=== PATIENT | female | born 1995 | race Caucasian/White ===

== ENCOUNTER 2024-01-18 03:48 | Inpatient (IN) | payer OTHER ==
[2024-01-18] VITALS (16 sets, daily range): BP systolic 111–157; BP diastolic 46–84
[~2024-01-18] VITALS: Ht 175.3 cm; Wt 133.2 kg
[2024-01-18] MEDS ORDERED: PRENATAL TABLE1 EAC2 PO (03:56)
[2024-01-18] MEDS ORDERED: OXYTOCIN IV ONE (04:20)
[2024-01-18] MEDS ORDERED: RINGER S LACTATE IV ONE (04:20)
[2024-01-18] MEDS ORDERED: Misoprostol 200 MCG Tab PR PRN ×2 (04:40→05:40)
[2024-01-18] MEDS ORDERED: Tranexamic Acid 100 ML IV SCH (04:40)
[2024-01-18] MEDS ORDERED: Misoprostol 200 MCG Tab BC PRN (04:40)
[2024-01-18] MEDS ORDERED: Acetaminophen 500 MG Tab PO PRN (04:40)
[2024-01-18] MEDS ORDERED: Calcium Carbonate 500 MG Tab Chew PO PRN (04:40)
[2024-01-18] MEDS ORDERED: OXYTOCIN/RINGER'S LACTATE 500 ML IV PRN (04:40)
[2024-01-18] MEDS ORDERED: Carboprost Tromethamine 250 MCG/ML 1ML Amp IM PRN (04:40)
[2024-01-18] MEDS ORDERED: Methylergonovine Maleate 0.2MG / ML 1ML Amp IM PRN ×2 (04:40→05:40)
[2024-01-18] MEDS ORDERED: Ondansetron HCl 2 MG / ML 2ML Vial IV PRN ×2 (04:40→05:35)
[2024-01-18] MEDS ORDERED: Oxytocin 10 Unit / ML Vial IM PRN (04:40)
[2024-01-18 05:04] LABS: BASOPHILS ABSOLUTE AUTO 0.06 K/mm3 (0.00-0.23); BASOPHILS PERCENT AUTO 0 % (0-2); EOSINOPHILS ABSOLUTE AUTO 0.03 K/mm3 (0.00-0.68); EOSINOPHILS PERCENT AUTO 0 % (0-6); Hematocrit 35.4 % (33.0-51.0); Hemoglobin 12.1 g/dL (11.5-16.0); IMMATURE GRAN ABSOLUTE AUTO 0.16 K/mm3 (0.00-0.10); IMMATURE GRAN PERCENT AUTO 1 % (0-1); LYMPHOCYTES ABSOLUTE AUTO 1.51 K/mm3 (0.84-5.20); LYMPHOCYTES PERCENT AUTO 6 % (21-46); MONOCYTES ABSOLUTE AUTO 0.77 K/mm3 (0.16-1.47); MONOCYTES PERCENT AUTO 3 % (4-13); Mean Corpuscular HGB 30.4 pg (26.0-34.0); Mean Corpuscular HGB Conc 34.2 g/dL (31.5-36.5); Mean Corpuscular Volume 89 fL (80-100); Mean Platelet Volume 9.3 fL (9.1-12.4); NEUTROPHILS ABSOLUTE AUTO 20.93 K/mm3 (1.96-9.15); NEUTROPHILS PERCENT AUTO 89 % (41-73); Platelet Count 343 K/mm3 (150-400); RDW Coefficient Variation 14.6 % (11.7-14.2); RDW Standard Deviation 46.5 fL (35.1-46.3); Red Blood Cell Count 3.98 M/mm3 (3.80-5.20); White Blood Cell Count 23.46 K/mm3 (4.00-11.30)
[2024-01-18] MEDS ORDERED: OxyCODONE 5 mg/Acetamin 325 mg TABLET PO PRN (05:35)
[2024-01-18] MEDS ORDERED: OXYTOCIN/RINGER'S LACTATE 500 ML IV SCH (05:35)
[2024-01-18] MEDS ORDERED: Lanolin Cream TOP PRN (05:35)
[2024-01-18] MEDS ORDERED: Rho(D) Immune Globulin 300 MCG / SYR IM ONE (05:40)
[2024-01-18] MEDS ORDERED: Witch Hazel/Glycerin PADS TOP PRN (05:40)
[2024-01-18] MEDS ORDERED: Ketorolac Tromethamine 30mg Vial IV PRN (05:40)
[2024-01-18] MEDS ORDERED: FLU VACC TS2024-25(6MOS UP)/PF 45 MCG/0.5 ML SYRINGE IM ONE (05:40)
[2024-01-18] MEDS ORDERED: Lactated Ringer's 1,000 ML IV SCH (05:40)
[2024-01-18] MEDS ORDERED: Docusate Sodium 100 MG Cap PO PRN (05:40)
[2024-01-18] MEDS ORDERED: Benzocaine Topical Anesthetic Spray 60GM TOP PRN (05:45)
[2024-01-18] MEDS ORDERED: Promethazine HCl 25 MG Tab PO PRN (05:45)
[2024-01-18] MEDS ORDERED: Acetaminophen 325 MG TABLET PO PRN (05:45)
[2024-01-18] MEDS ORDERED: Tranexamic Acid 100 ML IV PRN (06:05)
[2024-01-18] MEDS ORDERED: Prenatal Vit/FE Fumarate/FA 1 Tab PO SCH (09:00)
[2024-01-18] MEDS ORDERED: Simethicone 80 MG Chew PO PRN (13:30)
[2024-01-18] MEDS ORDERED: Oxytocin 10 Unit / ML Vial XX ONE (18:59)
[2024-01-18] MEDS ORDERED: Rho(D) Immune Globulin 300 MCG / SYR IV ONE (20:30)
[2024-01-19 05:58] VITALS: BP 143/85
[2024-01-19 07:30] VITALS: BP 136/79
[2024-01-19 08:33] LABS: BASOPHILS ABSOLUTE AUTO 0.06 K/mm3 (0.00-0.23); BASOPHILS PERCENT AUTO 0 % (0-2); EOSINOPHILS ABSOLUTE AUTO 0.16 K/mm3 (0.00-0.68); EOSINOPHILS PERCENT AUTO 1 % (0-6); Hematocrit 33.5 % (33.0-51.0); Hemoglobin 11.1 g/dL (11.5-16.0); IMMATURE GRAN ABSOLUTE AUTO 0.11 K/mm3 (0.00-0.10); IMMATURE GRAN PERCENT AUTO 1 % (0-1); LYMPHOCYTES ABSOLUTE AUTO 3.02 K/mm3 (0.84-5.20); LYMPHOCYTES PERCENT AUTO 19 % (21-46); MONOCYTES ABSOLUTE AUTO 0.83 K/mm3 (0.16-1.47); MONOCYTES PERCENT AUTO 5 % (4-13); Mean Corpuscular HGB 29.6 pg (26.0-34.0); Mean Corpuscular HGB Conc 33.1 g/dL (31.5-36.5); Mean Corpuscular Volume 89 fL (80-100); NEUTROPHILS PERCENT AUTO 74 % (41-73); Platelet Count 304 K/mm3 (150-400); RDW Coefficient Variation 14.6 % (11.7-14.2); Red Blood Cell Count 3.75 M/mm3 (3.80-5.20); White Blood Cell Count 15.78 K/mm3 (4.00-11.30)
[2024-01-19] MEDS ORDERED: Rho(D) Immune Globulin 300 MCG / SYR IM SCH (09:00)
== END 2024-01-19 12:22 | disposition home or self-care (01) | DRG 807 ==
LOC: OBS 03:48 → BC 03:49 → OBS 04:11 → BC 04:17
PROVIDERS: ADMIT Obstetrics & Gynecology
PROC: 10E0XZZ Delivery of Products of Conception, External Approach (ICD-10-PCS; principal; 2024-01-18)
PROC: 0KQM0ZZ Repair Perineum Muscle, Open Approach (ICD-10-PCS; 2024-01-18)
PROC: 3E0R3BZ Introduction of Anesthetic Agent into Spinal Canal, Percutaneous Approach (ICD-10-PCS; 2024-01-18)
PROC: 00HU33Z Insertion of Infusion Device into Spinal Canal, Percutaneous Approach (ICD-10-PCS; 2024-01-18)
DX: O62.3 Precipitate labor (principal); Z37.0 Single live birth; O48.0 Post-term pregnancy; O99.824 Streptococcus B carrier state complicating childbirth; Z3A.41 41 weeks gestation of pregnancy; O70.1 Second degree perineal laceration during delivery
CPT/HCPCS: 36415; 59414; 85025; 85460; 86850; 86900; 86901; 86923; A9270; J1885; J2405; J2590; J2791

== ENCOUNTER → 2024-05-20 | Outpatient (CLI) | payer OTHER ==
[~2024-05-20] MED LIST: PRENATAL TABLE1 EAC2 PO
[2024-05-20 19:49] LABS: Hematocrit 41.7 % (33.0-51.0); Hemoglobin 13.5 g/dL (11.5-16.0); Mean Corpuscular HGB 28.6 pg (26.0-34.0); Mean Corpuscular HGB Conc 32.4 g/dL (31.5-36.5); Mean Corpuscular Volume 88 fL (80-100); Mean Platelet Volume 9.7 fL (9.1-12.4); Platelet Count 467 K/mm3 (150-400); RDW Coefficient Variation 14.3 % (11.7-14.2); RDW Standard Deviation 46.1 fL (35.1-46.3); Red Blood Cell Count 4.72 M/mm3 (3.80-5.20)
[2024-05-20 20:17] LABS: Anion Gap 10 mmol/L (3-11); Blood Urea Nitrogen 11 mg/dL (8-24); Bun/Creatinine Ratio 11.7 (12.0-20.0); CHOL/HDL RATIO 4.2; CO2, Blood 26 mmol/L (21-32); Calcium, Blood 9.3 mg/dL (8.5-10.1); Chloride, Blood 107 mmol/L (98-108); Cholesterol 163 mg/dL (50-200); Creatinine, Blood 0.94 mg/dL (0.40-1.00); Glomerular Filtration Rate 85 (60-); Glucose, Blood 94 mg/dL (70-99); HDL Cholesterol 39 mg/dL (>39); LDL/HDL RATIO 2.2; Low Density Lipoprotein Chol 84 mg/dL (0-110); Potassium, Blood 3.7 mmol/L (3.5-5.5); Sodium, Blood 139 mmol/L (136-145); Triglycerides 198 mg/dL (30-140); Very Low Density Lipoprot Chol 39 mg/dL (6-28)
== END ==
LOC: LAB 18:45 → LAB SHORT 18:45
DX: E66.01 Morbid (severe) obesity due to excess calories (principal); E66.813 Obesity, class 3; M54.50 Low back pain, unspecified; Z13.21 Encounter for screening for nutritional disorder; Z68.41 Body mass index [BMI] 40.0-44.9, adult
CPT/HCPCS: 80048; 80061; 82306; 84443; 85027